=== PATIENT | female | born 1945 | race Caucasian/White ===

== ENCOUNTER 2017-07-12 07:16 | Day surgery (SDC) | payer MEDICARE ==
[~2017-07-12] VITALS: Ht 154.9 cm; Wt 72.6 kg
[~2017-07-12 07:16] MED LIST: CELEXA20 MG PO; LEVOTHYROXINE137 MCG PO; MELATONIN10 M2 PO; NORCO 5-325 TA1 EACH PO; OMEPRAZOLE20 MG PO
[2017-07-12] MEDS ORDERED: WOMEN'S DAILY1 EAC2 PO (07:27)
== END 2017-07-12 09:02 | disposition home or self-care (01) ==
LOC: DS 07:16 → OPS 07:16 → DS 08:15 → OPS 09:02
PROC: 08RK3JZ Replacement of Left Lens with Synthetic Substitute, Percutaneous Approach (ICD-10-PCS; principal; 2017-07-12)
DX: H25.12 Age-related nuclear cataract, left eye (principal); K21.9 Gastro-esophageal reflux disease without esophagitis; G43.909 Migraine, unspecified, not intractable, without status migrainosus; Z85.850 Personal history of malignant neoplasm of thyroid; Z98.890 Other specified postprocedural states; Z79.899 Other long term (current) drug therapy
CPT/HCPCS: 140

== ENCOUNTER 2018-04-26 07:00 | Day surgery (SDC) | payer MEDICARE ==
[~2018-04-26] VITALS: Ht 154.9 cm; Wt 72.6 kg
--- NOTE | ~2018-04-26 | OR ---
[facility] [address] [place], [place] [address] Draft DATE OF OPERATION: 04/26/2018 SURGEON: Juan Figueroa MD PREOPERATIVE DIAGNOSES: Chronic tendinosis, rotator cuff right shoulder with subacromial impingement and acromioclavicular joint arthritis causing impingement. POSTOPERATIVE DIAGNOSES: Chronic tendinosis, rotator cuff right shoulder with subacromial impingement and acromioclavicular joint arthritis causing impingement. PROCEDURE: Right shoulder arthroscopy with subacromial decompression and arthroscopic Clem. ANESTHESIA: General. SPECIMENS AND COMPLICATIONS: There were no specimens or complications. TOURNIQUET: Not used. BLOOD LOSS: Minimal. WHAT WAS DONE: The patient was taken to the operating room. After anesthesia was induced and the airway secured, the patient was placed in a modified beach chair position and prepped and draped in a routine sterile fashion. The bony topography was outlined with a skin marking pen and the arthroscope was inserted through the standard posterior portal. Arthroscopy of the shoulder joint revealed some inflammation in the rotator cuff, but no other pathology. An anterior portal was created using a switching stick technique and a probe was introduced. Careful probing of the rotator cuff and the biceps tendon and labrum did not reveal any additional pathology. The shoulder was then drained, the scope was withdrawn and directed into the subacromial space. An auxiliary lateral portal was then created through which the VAPR electrosurgical device was introduced. We used the VAPR to do a subacromial bursectomy. A 4 mm allan was then introduced and a generous subacromial decompression was performed. We then to co-planed the under PATIENT NAME: DAVI DIAL OPERATIVE REPORT DATE OF : 47 REPORT #: [id number] PHYSICIAN: JUAN FIGUEROA MD PCP: THANH HASKINS MD REPORT IS CONFIDENTIAL AND NOT TO BE RELEASED WITHOUT AUTHORIZATION [facility] [address] [place] [id number] Draft surface of the distal cm of the clavicle with the level of the subacromial decompression. We then redirected the previous auxiliary anterior portal into the AC joint. We 1st introduced the VAPR to remove some remnants of the capsule and soft tissue. We then reintroduced the allan to remove about 7 mm of the distal clavicle. The subacromial space was then irrigated and drained. The portals were closed and sterile dressings applied. She was placed in a sling, awakened, taken to the recovery room, where she arrived in stable condition. Counts were correct and antibiotic protocols were followed. MD ANSELMO Henry/MODL /[id number] Copies: ~ PATIENT NAME: DAVI DIAL OPERATIVE REPORT DATE OF : 47 REPORT #: [id number] PHYSICIAN: JUAN FIGUEROA MD PCP: THANH HASKINS MD REPORT IS CONFIDENTIAL AND NOT TO BE RELEASED WITHOUT AUTHORIZATION
[~2018-04-26 07:00] MED LIST changes: +WOMEN'S DAILY1 EAC2 PO
[2018-04-26] MEDS ORDERED: CEPHALEXIN250 MG PO (07:16)
--- NOTE | 2018-04-26 10:18 | NUR ---
04/26/18 Luda7 Kira White 1011 PATIENT ARRIVES TO PACU SLEEPING, DOES NOT RESPOND TO VERBAL OR PAINFUL STIMULI. RESP EVEN AND UNLABORED, MASK AT 6 LITERS. 1015 PATIENT WAKES UP WITH LOUD VERBAL STIMULI. DENIES PAIN OR NAUSEA. BACK TO SLEEP. RESP EVEN AND UNLABORED, MASK AT 6 LITERS. ICE TO RIGHT SHOULDER. SLING IN PLACE FROM OR.
--- NOTE | 2018-04-26 11:12 | NUR ---
SMITA PARIS AND HELADIO JOHNSON. FAMILY @ BS. CALL LIGHT W/IN REACH.
--- NOTE | 2018-04-26 11:33 | NUR ---
HARD COPY PRESCRIPTION GIVEN TO FAMILY. PATIENT DENIES NAUSEA WITH EATING JELLO.
[2018-04-26] MEDS ORDERED: NORCO 5-325 TA1 EACH PO ×3 (11:53→11:55)
[2018-04-26] MEDS ORDERED: ULTRAM50 MG PO ×3 (11:54→11:55)
--- NOTE | 2018-04-26 12:23 | NUR ---
PT UP TO BR W/RN STANDBY. PT REPORTS FEELING DIZZY. PT AMBULATES WELL. PT IS UNABLE TO VOID AND IS BACK IN BED. MORE ICED WATER GIVEN. PT DENIES ADD'L NEEDS @ THIS TIME.
--- NOTE | 2018-04-26 12:56 | NUR ---
PT USES CALL LIGHT TO NOTIFY RN FOR HELP TO BR. PT AMBULATES TO BR WITH RN ASSIST, PT USES OBJECTS CLOSE BY FOR STABILIZATION. PT DENIES DIZZINESS. PT UNABLE TO VOID AT THIS TIME. IV RUNNING CONTINUOUS, ICED WATER REFILLED, AND PROVIDED APPLE JUICE PER REQUEST. PT BACK IN BED WITH SIDERAIL IN PLACE. PT FRIEND AT BEDSIDE, PT EAGER TO GO HOME.
--- NOTE | 2018-04-26 13:26 | NUR ---
MORE ICED WATER AND HOT TEA GIVEN. PT DENIES ADD'L NEEDS. FAMILY REMAINS @ BS.
--- NOTE | 2018-04-26 14:10 | NUR ---
PATIENT UP TO BR W/RN STANDBY. PT AMBULATES WELL AND IS UNSUCCESSFUL AT VOIDING. PATIENT REPORTS THE URGE TO VOID "SLIGHTLY". PATIENT IS BLADDER SCANNED AND IS FOUND TO HAVE 231 ML IN HER BLADDER. IV RECONNECTED AND RUNNING @ TKO. CALL LIGHT W/IN REACH. MORE ICED WATER GIVEN.
--- NOTE | 2018-04-26 15:10 | NUR ---
PATIENT UP TO BR W/RN STANDBY. PT VOIDS 300 ML CLEAR YELLOW URINE AND REQ DC HOME.
--- NOTE | 2018-04-26 15:37 | NUR ---
DC INSTRUCTIONS GIVEN IN PRESENCE OF FAMILY AND BOTH VERBALIZE UNDERSTANDING. PATIENT ASSISTED DRESSED BY FAMILY AND SHE TOLERATES THAT WELL. MORE ICED WATER GIVEN.
--- NOTE | 2018-04-26 16:02 | NUR ---
ALLA 1555: PT TRANSFERS SELF TO AND THEN TO PERSONAL VEHICLE AND DOES THAT WELL.
== END 2018-04-26 15:55 | disposition home or self-care (01) ==
LOC: DS 07:00
PROVIDERS: Orthopaedic Surgery
PROC: 0PB94ZZ Excision of Right Clavicle, Percutaneous Endoscopic Approach (ICD-10-PCS; principal; 2018-04-26 08:15)
PROC: 0RNJ4ZZ Release Right Shoulder Joint, Percutaneous Endoscopic Approach (ICD-10-PCS; 2018-04-26 08:15)
DX: M19.011 Primary osteoarthritis, right shoulder (principal); M75.81 Other shoulder lesions, right shoulder; M25.811 Other specified joint disorders, right shoulder; E03.9 Hypothyroidism, unspecified; K21.9 Gastro-esophageal reflux disease without esophagitis; Z79.899 Other long term (current) drug therapy; Z79.2 Long term (current) use of antibiotics
CPT/HCPCS: 64415; 76942; J0330; J0461; J0690; J1100; J1170; J1885; J2250; J2405; J2704; J3010; J7120

== ENCOUNTER 2019-10-03 18:07 | Emergency (ER) | payer MEDICARE ==
[~2019-10-03] VITALS: Ht 154.9 cm; Wt 72.6 kg
[~2019-10-03 18:07] MED LIST changes: +CEPHALEXIN250 MG PO; +ULTRAM50 MG PO
== END 2019-10-03 22:10 | disposition short-term general hospital (02) ==
LOC: ED 18:07
DX: S12.112A Nondisplaced Type II dens fracture, initial encounter for closed fracture (principal); V89.2XXA Person injured in unspecified motor-vehicle accident, traffic, initial encounter
CPT/HCPCS: 70450; 70498; 71045; 72125; 80053; 85025; 99285-25; J2270; J7030

== ENCOUNTER 2019-10-10 21:04 | Emergency (ER) | payer OTHER ==
[~2019-10-10] VITALS: Ht 154.9 cm; Wt 72.6 kg
[2019-10-10] MEDS ORDERED: PREDNISONE20 MG PO (21:34)
== END 2019-10-10 21:48 | disposition home or self-care (01) ==
LOC: ED 21:04
DX: L50.9 Urticaria, unspecified (principal); K21.9 Gastro-esophageal reflux disease without esophagitis; Z79.899 Other long term (current) drug therapy
CPT/HCPCS: 99282; J7512; Q0163